=== PATIENT | female | born 1950 | race Caucasian/White ===

== ENCOUNTER → 2020-10-24 | Outpatient (CLI) | payer OTHER | LOC: SJCVC 10:11 | PROVIDERS: ATTEND Internal Medicine | DX: Z01.810 Encounter for preprocedural cardiovascular examination (principal); R94.31 Abnormal electrocardiogram [ECG] [EKG]; R06.09 Other forms of dyspnea; I10 Essential (primary) hypertension; E66.9 Obesity, unspecified; G47.30 Sleep apnea, unspecified; E03.9 Hypothyroidism, unspecified; Z88.1 Allergy status to other antibiotic agents; Z88.2 Allergy status to sulfonamides; Z88.8 Allergy status to other drugs, medicaments and biological substances; Z79.899 Other long term (current) drug therapy ==

== ENCOUNTER → 2020-12-07 | Outpatient (CLI) | payer OTHER ==
[~2020-12-07] MED LIST: ALPRAZOLAM 0.0.25 MG PO; AMPICILLIN TRI500 MG PO; BUPROPION HCL150 M1 PO; CELEBREX 200 M200 MG PO; CLONIDINE HCL0.1 MG PO; COZAAR100 MG PO; FLEXERIL PO; LEVO-T50 MCG PO; MIRAPEX1.5 MG PO; NEUPRO1 EAC1 TRANSDERM; NIFEDIPINE ER30 MG PO; NORCO7.5 PO; NYSTOP TOP; PROTONIX40 M4 PO; ROSUVASTATIN CA10 MG PO; ZOLOFT100 MG PO
== END ==
LOC: SJCVCIMAG 07:19
PROVIDERS: ATTEND Internal Medicine
DX: Z01.810 Encounter for preprocedural cardiovascular examination (principal); I49.1 Atrial premature depolarization; I10 Essential (primary) hypertension; E78.5 Hyperlipidemia, unspecified; R94.31 Abnormal electrocardiogram [ECG] [EKG]; R06.00 Dyspnea, unspecified

== ENCOUNTER → 2020-12-20 | Outpatient (CLI) | payer OTHER | LOC: LAB 10:53 | PROVIDERS: ATTEND Internal Medicine Gastroenterology | DX: Z01.812 Encounter for preprocedural laboratory examination (principal); Z20.822 Contact with and (suspected) exposure to COVID-19 ==

== ENCOUNTER → 2020-12-25 | Outpatient (CLI) | payer OTHER ==
[~2020-12-25] VITALS: Ht 154.9 cm; Wt 113.4 kg
--- NOTE | 2020-12-27 18:06 | PATH ---
[facility] [place] [address] PATHOLOGY RPT PROCEDURE Name: NIMCO CARLSON Room #: REG ANTHONY Elizabeth.Jazzy.#: [id number] Admission: 12/25/20 Date of : 54 Discharge: Report #: [id number] Path Case #: [id number] LCA Accession Number: [id number] . 01 Material submitted: . PART A: gastrointestinal site - RANDOM GASTRIC BIOPSY PART B: esophagus - RANDOM ESOPHAGUS BIOPSY . 01 Clinical history: . DTS/EGD/REFLUX, BARIATRIC SURGERY FOR A- RULE OUT H. PYLORI FOR B- RULE OUT EOSINOPHILIC ESOPHAGITIS . 02 Diagnosis: A. Gastric mucosa, random gastric, endoscopic biopsy: - Moderate reactive gastropathy. - Negative for intestinal metaplasia or atrophy. - Negative for Helicobacter pylori (properly-controlled immunohistochemical stain performed). . B. Squamous mucosa, random esophageal, endoscopic biopsy: - Mild active esophagitis. - No increase in eosinophils within the epithelium. - Negative for intestinal metaplasia or dysplasia. . (IUV:mml; 12/27/2020) QLM 12/27/2020 1336 Local . 02 Electronically signed: . Cheri Valles MD, Pathologist NPI- [id number] . 01 Gross description: . A. The specimen is received in formalin, labeled "Nimco Carlson", "random gastric biopsy rule out H. pylori". Received are multiple segments of pale man soft tissue ranging in size from 0.2 cm to 0.4 cm. The specimen is entirely submitted in cassette A1. . B. The specimen is received in formalin, labeled "Nimco Carlson", "random esophagus biopsy rule out eosinophilic esophagitis". Received are multiple segments of pale white soft tissue ranging in size from 0.1 cm to 0.3 cm. The specimen is entirely submitted in cassette B1.([facility]; 12/26/2020) [facility] 12/26/2020 08 Local . 02 Pathologist provided ICD-10: K31.9, K20.[address] [address] PATHOLOGY RPT PROCEDURE Name: NIMCO CARLSON Room #: REG ANTHONY Medrano#: [id number] Admission: 12/25/20 Date of : 54 Discharge: Report #: [id number] Path Case #: [id number] . 02 [facility] . [id number], [id number], [id number] Specimen Comment: A courtesy copy of this report has been sent to [phone] Specimen Comment: [id number] Specimen Comment: Report sent to / DR LADD Performed at: [address], [place] [id number] MD Matti Lopez MD Phone: [phone] Performed at: [address] [id number] MD Cheri Valles MD Phone: [phone]
== END | disposition home or self-care (01) ==
LOC: GI 11-27 14:09
PROVIDERS: ATTEND Internal Medicine Gastroenterology
DX: R13.10 Dysphagia, unspecified (principal); R12 Heartburn; K31.9 Disease of stomach and duodenum, unspecified; K21.00 Gastro-esophageal reflux disease with esophagitis, without bleeding; K29.70 Gastritis, unspecified, without bleeding; I10 Essential (primary) hypertension; E78.00 Pure hypercholesterolemia, unspecified; F32.9 Major depressive disorder, single episode, unspecified; F41.9 Anxiety disorder, unspecified; E66.01 Morbid (severe) obesity due to excess calories; Z98.890 Other specified postprocedural states; Z01.818 Encounter for other preprocedural examination; Z79.899 Other long term (current) drug therapy; Z90.49 Acquired absence of other specified parts of digestive tract; Z90.711 Acquired absence of uterus with remaining cervical stump; Z88.8 Allergy status to other drugs, medicaments and biological substances; Z68.42 Body mass index [BMI] 45.0-49.9, adult
CPT/HCPCS: 62110; 62900

== ENCOUNTER → 2021-02-07 | Outpatient (CLI) | payer OTHER | LOC: SJCVC 13:07 | PROVIDERS: ATTEND Internal Medicine | DX: Z01.818 Encounter for other preprocedural examination (principal); I10 Essential (primary) hypertension; G47.30 Sleep apnea, unspecified; E66.9 Obesity, unspecified; R06.09 Other forms of dyspnea; R94.31 Abnormal electrocardiogram [ECG] [EKG]; M19.90 Unspecified osteoarthritis, unspecified site; E03.9 Hypothyroidism, unspecified; Z98.890 Other specified postprocedural states; Z68.43 Body mass index [BMI] 50.0-59.9, adult; Z88.2 Allergy status to sulfonamides; Z88.8 Allergy status to other drugs, medicaments and biological substances; Z79.899 Other long term (current) drug therapy; Z82.49 Family history of ischemic heart disease and other diseases of the circulatory system ==

== ENCOUNTER 2021-03-08 06:07 | Inpatient (IN) | payer OTHER ==
[~2021-03-08] VITALS: Ht 154.9 cm; Wt 108.9 kg
[2021-03-08] VITALS (9 sets, daily range): BP systolic 121–187; BP diastolic 45–72
--- NOTE | ~2021-03-08 | O ---
[facility] [place] [address] [place] [address] OPERATIVE REPORT Name: EDINSON CARLSON Room #: 451-P ADM IN M.R.#: [id number] Admission: 03/08/21 Attend Phys: Santy Brannon MD Discharge: Date of : 54 Report #: [id number] THIS REPORT FOR: cc: Nahomy Ruiz MD, Emily G. MD Joseph, Sigi P. MD ~ DOC #: [id number] cc: Nahomy Brannon MD DATE OF SERVICE: 03/08/2021 PREOPERATIVE DIAGNOSES: 1. Morbid obesity. 2. Hypertension. 3. Gastroesophageal reflux disease. 4. Hyperlipidemia. 5. Sleep apnea. POSTOPERATIVE DIAGNOSES: 1. Morbid obesity. 2. Hypertension. 3. Gastroesophageal reflux disease. 4. Hyperlipidemia. 5. Sleep apnea. OPERATIVE PROCEDURES DONE: 1. Laparoscopic Dionicio-en-Y gastric bypass. 2. Upper GI endoscopy. OPERATING SURGEON: Santy Brannon MD INDICATIONS FOR THE PROCEDURE: The patient is a 71-year-old female who presented with features of morbid obesity. She was noted to have a weight of 112 kilograms with a BMI of 47 with the above listed comorbidities. The patient has limited mobility and is often wheelchair bound. The patient was advised laparoscopic Dionicio-en-Y gastric bypass. The patient showed understanding and agreed to proceed. DESCRIPTION OF PROCEDURE: After explaining to the patient in detail and informed consent was obtained, the patient was identified in the preoperative holding area. The patient was transferred to the operating room and was placed in supine position. Sequential compressive devices were placed for DVT prophylaxis. No preoperative antibiotics were given. After induction of anesthesia, the abdomen was prepped and draped in a sterile fashion. Through a left upper quadrant, a 1 cm incision and using Optiview technique, peritoneal [facility] [address] [place] [address] OPERATIVE REPORT Name: EDINSON CARLSON Room #: 451-P [facility] [id number] Admission: 03/08/21 Attend Phys: Santy Brannon MD Discharge: Date of : 54 Report #: [id number] cavity was entered and pneumoperitoneum was created. Thereafter, under direct vision, another 5 mm trocar was placed in the left mid abdomen and another 12 mm trocar was placed in the right mid abdomen and another 5 mm trocar was placed in the right upper quadrant region and through a 1 cm incision in the epigastrium, a Simone retractor was introduced and the left lobe of the liver was retracted. Upon initial inspection, the patient did not have any features to suggest a hiatal hernia. I divided the gastrohepatic omentum using EnSeal. I then divided the fatty tissues with a small blood vessels along the lesser curve of the stomach at the junction of the proximal and middle third using an Endo-KAMINI white load stapler with Arlette-Strips. I then fired a single green load 60 mm stapler transversely at this point. The posterior attachments of the stomach and the pancreas were released. The gastrophrenic ligament was divided and the angle of His was mobilized. I then continued to create the gastric pouch by dividing the stomach in a vertical fashion up to the angle of His using Endo-KAMINI green load stapler with Arlette-Strips. Once this is complete, I then divided the greater omentum using the EnSeal in the middle. The transverse mesocolon was retracted. I then inspected the small bowel from the ligament of Treitz and measured downstream for about 50 cm. I then brought this loop of bowel onto the gastric pouch. An enterotomy was made at this point on the small bowel and a posterior gastrotomy was made in the gastric pouch and a posterior gastrojejunostomy was made using an Endo-KAMINI blue load stapler. With the initial firing as lumen appeared slightly smaller, I fired a second stapler again to just have adequate lumen approximately about 2.5 cm to 3 cm lumen. The common gastroenterotomy was then closed using 2-0 V-Loc continuous sutures in two layers. I then divided the biliary limb just proximal to the anastomosis using Endo-KAMINI blue load stapler with Arlette-Strips. I then measured the Dionicio limb for about 125 cm. An enterotomy was made at this point, another enterotomy was made in the biliary limb and a [id number] jejunojejunostomy was made. The common enterotomy was then again closed using blue load stapler with Arlette-Strips. The mesenteric defect was closed with 2-0 silk sutures. I then proceeded with the upper GI endoscopy. The Dionicio limb was occluded just distal to the anastomosis. The scope was introduced into the esophagus, was gradually advanced into the gastric pouch. The pouch appeared to be of adequate size. The gastrojejunal anastomosis appeared to be of adequate size. I was able to enter the Dionicio limb without difficulty and air insufflation test was performed and by irrigation of fluid along the staple line, there was no leak that was noted. The scope was removed. Absolute hemostasis was ensured. Thorough saline irrigation was given. Approximately 10 mL of lidocaine, Marcaine mix was instilled into the left hemidiaphragm. The Simone retractor was removed. The 12 mm port site incision was closed with 0 Vicryl for the fascia. Skin was closed with 4-0 Monocryl for all the incisions. Dermabond was applied. The patient was stable at the end of the procedure. The patient was [facility] [place] [address] OPERATIVE REPORT Name: EDINSON CARLSON Room #: 451-P [facility] IN ..#: [id number] Admission: 03/08/21 Attend Phys: Santy Brannon MD Discharge: Date of : 54 Report #: [id number] awoken from anesthesia and was transferred to the recovery room in stable condition. Estimated blood loss was approximately 20 mL. CONDITION OF THE PATIENT: Stable. FLUIDS GIVEN: Per anesthesia notes. SPECIMEN SENT: None. COMPLICATIONS: None. ANESTHESIA: General anesthesia. Santy Brannon MD SPJ/KDA By: [id number] Santy Brannon MD /nt
[~2021-03-08 06:07] MED LIST changes: +IRON325 PO
--- NOTE | 2021-03-08 19:32 | NUR ---
Pt arrived to floor per cart from recovery room at 1145 in stable condition. Admission hx, assessment and careplan completed.Pt c/o abdominal pain rated 9/10. Morphine ivp given with relief.Dr Brannon rounded on pt later this evening,additional order received.Pt family at bs most of thetime this evening.Pt ambulated in hallways with tech.Fair endurance noted.Report off to Lanny rn.
[2021-03-09] VITALS (8 sets, daily range): BP systolic 152–184; BP diastolic 55–93
--- NOTE | 2021-03-09 02:21 | NUR ---
patient aox4 makes needs known. pain and nausea controlled this shift.patient had high blood pressure called dr. peguero order of hydralazine 10 mg q 2 hours, for blood pressure>170. patient has 4 lap sites on the abd c/d/i. patient ambulates with steady gaits in the unit x1. patient continues to be npo. o2 sat >95%. fall precaution in place. patient in bed asleep at this time breathing regular and unlaboured.
[2021-03-09 05:30] LABS: ABSOLUTE NEUTROPHILS 9.9 thou/uL (1.4-8.2); BASOPHILS 0.3 % (0.0-2.0); EOSINOPHILS 0.8 % (0.0-3.0); HEMATOCRIT 36.6 % (37.0-47.0); LYMPHOCYTES 8.6 % (24.0-44.0); MCH 28.1 pg (26.0-34.0); MCHC 32.8 g/dL (28.0-37.0); MCV 85.7 fL (80.0-100.0); MONOCYTES 4.6 % (1.0-8.0); PLATELET COUNT 227 thou/uL (150-400); POLYS 85.7 % (36.0-66.0); RBC 4.28 mil/uL (4.20-5.00); RDW 16.2 % (10.5-14.5); WBC 11.6 thou/uL (4.0-11.0)
[2021-03-09 05:55] LABS: ALBUMIN 3.8 g/dL (3.4-5.0); CALCIUM 9.2 mg/dL (8.5-10.1); CREATININE 0.8 mg/dL (0.6-1.0); POTASSIUM 4.5 mmol/L (3.5-5.1); TOTAL BILIRUBIN 0.3 mg/dL (0.2-1.0); TOTAL PROTEIN 7.3 g/dL (6.4-8.2)
--- NOTE | 2021-03-09 10:37 | NUR ---
PT and ASPHALT PAVING MACHINE OPERATOR reported that the patient had tremor, the staff talked to Dr. Brannon, was asked to consult a physician, any of the hospitalists. A message has been sent to Dr. Lange. awaiting response. According the patient, she had the similar symptom this morning around 9:30am, a adrián saw it but [facility].
--- NOTE | 2021-03-09 10:42 | NUR ---
Talked to the quarry supervisor open pit Rhonda, Rhonda asked the staff to wait some more time for Dr. Lange to answer, or else, Rhonda voiced that i can call her for help again.
--- NOTE | 2021-03-09 11:18 | NUR ---
Patient checked at 11:15am, tremor stopped, patient had eyes closed, chest up and down. the staff talked to the patient, patient voiced that she was having headache,06/10, BP:171/77. PULSE 66.
--- NOTE | 2021-03-09 11:28 | NUR ---
PT. HAVING TREMORS - RESIDENTIAL APPLIANCE REPAIR TECHNICIAN INITIATED - SEE FLOWSHEET
--- NOTE | 2021-03-09 11:31 | NUR ---
Patient has been tremor free during the past at least 20 minutes.
--- NOTE | 2021-03-09 12:17 | NUR ---
PT ADMITTED RELATED TO GASTRIC BYPASS. CM REVIEWED CHART AND SPOKE WITH CARE TEAM. CM MET WITH PT AND SO AT BEDSIDE THIS DAY. PT APPEARED TO BE A&O X4. CM ROLE INTRODUCED. PT INDICATED SHE RESIDES IN A HOUSE WITH HER SO AND HER GSON. SHE INDICATED 2 STEPS TO ENTER AND A RAMP. NO STEPS PT USES INSIDE. PT INDICATED SHE HAS A FWW, 4WW (BROKEN SHE HAD USED OUTSIDE), AND A CANE. THEY INDICATED THAT PT HAD BEEN INDEPENDENT WITH ADLS INSPECTOR CASING. PT'S PCP IS DR. MYAH LADD. SO AND PT INDICATED THEY PLAN FOR PT TO RETURN HOME ONCE MEDICALLY STABLE. CM FOLLOWING SHOULD ANY DC NEEDS ARISE.
--- NOTE | 2021-03-09 13:00 | EKG ---
[address] [place] [address] ELECTROCARDIOGRAM REPORT Name: EDINSON CARLSON Room #: 451-P ADM IN M.R.#: [id number] Admission: 03/08/21 Attend Phys: Santy Brannon MD Discharge: Date of : 54 Report #: [id number] [facility] Test Date: 2021-03-09 Test Time: 11:03:09 Pat Name: EDINSON CARLSON Department: Room: [facility] Gender: F Physicist Astrophysics: NATHANAEL : 1950 Requested By: Santy Brannon Order Number: [id number] MD: Freedom Bauman Measurements Intervals [place] Rate: 83 P: 63 PA: 143 QRS: 1 QRSD: 83 T: 39 QT: 382 QTc: 449 Interpretive Statements Sinus rhythm Abnormal R-wave progression, late transition Left ventricular hypertrophy No previous ECG available for comparison Electronically Signed On 03-09-2021 13:00:27 CDT by Freedom Bauman [email or web address] <ELECTRONICALLY SIGNED> By: Freedom Bauman MD, [facility] 03/09/21 1300 1103 1103 Freedom Bauman MD, FACC /EPI
--- NOTE | 2021-03-09 13:46 | NUR ---
Nutrition: pt admitted POD 1, S/P laura-N-Y gastric bypass. RD consulted related to gastric sleeve diet order. Pt tolerating sips at this time. Very sleepy at time of visit but reports prior education on post op diet, voiced no questions. BMI 45, extreme class 3 obesity. On IVFs. A1C 6.0, BG controlled. Further diet advancement/vitamin orders per surgery. Consider low risk.
--- NOTE | 2021-03-09 18:13 | NUR ---
Patient stated while the being present that she did not want to be resuscitated if anything happened to her.
--- NOTE | 2021-03-09 18:19 | NUR ---
About the code status, patient changed idea, see the chart.
--- NOTE | 2021-03-09 18:48 | NUR ---
Gautam out around 9:20am, no urination since then,bladder scan: 450ml. call LABORATORY DEVELOPMENT TECHNICIAN, but LABORATORY DEVELOPMENT TECHNICIAN voiced that she would not begin the shift until 7pm, the staff send a message to Dr dockery. see the new orders.
[2021-03-09 20:09] LABS: URINE BILIRUBIN NEGATIVE (Negative); URINE BLOOD 1+ (Negative); URINE CLARITY CLEAR; URINE COLOR YELLOW; URINE GLUCOSE-RANDOM* NEGATIVE (Negative); URINE KETONES NEGATIVE (Negative); URINE LEUKOCYTES-REFLEX TRACE (Negative); URINE NITRITE-REFLEX NEGATIVE (Negative); URINE PROTEIN (DIPSTICK) NEGATIVE (Negative); URINE UROBILINOGEN 0.2 E.U./dl (0.2-1.0)
[2021-03-09 20:19] LABS: BACTERIA-REFLEX None Seen /HPF (None Seen); CASTS None Seen /LPF (None Seen); CRYSTALS None Seen /LPF (None Seen); SQUAMOUS 0-3 Few /LPF (0-3); URINE RBC 1-2 Rare /HPF (NONE SEEN); URINE WBC-REFLEX 0-5 Rare /HPF (0-5)
[2021-03-10 05:01] VITALS: BP 122/53
--- NOTE | 2021-03-10 05:13 | NUR ---
Assumed pt care 0. A/OX4,VSS.C/o nausea, pain to abd;medicated per EMAR with relief reported. Pt has 4 lap sites intact with dermabond. Bladder scanned at 0400 99cc noted,denies need to void,will continue to monitor pt. No tremors noted this shift. Reports last BM a week ago and doesn't feel constipated tho. NSR on telemetry. Will continue to monitor pt.
[2021-03-10 05:40] LABS: HEMATOCRIT 35.8 % (37.0-47.0); HEMOGLOBIN 11.8 gm/dL (12.0-15.0); MCH 28.2 pg (26.0-34.0); MCHC 32.8 g/dL (28.0-37.0); MCV 86.1 fL (80.0-100.0); RBC 4.16 mil/uL (4.20-5.00); RDW 16.4 % (10.5-14.5)
[2021-03-10 05:59] LABS: ALBUMIN 3.1 g/dL (3.4-5.0); CALCIUM 8.7 mg/dL (8.5-10.1); CREATININE 0.8 mg/dL (0.6-1.0); POTASSIUM 4.3 mmol/L (3.5-5.1); TOTAL BILIRUBIN 0.5 mg/dL (0.2-1.0); TOTAL PROTEIN 6.5 g/dL (6.4-8.2)
[2021-03-10 07:25] VITALS: BP 136/52
--- NOTE | 2021-03-10 08:49 | HC ---
[facility] [place] [address] [place] [address] CONSULTATION Name: EDINSON CARLSON Room #: 451-P ADM IN M.R.#: [id number] Admission: 03/08/21 Attend Phys: Santy Brannon MD Discharge: Date of : 54 Report #: [id number] THIS REPORT FOR: cc: Nahomy Ruiz MD,Mayuri Griffith MD, DO ~ NEUROLOGY CONSULTATION HISTORY OF PRESENT ILLNESS: The patient is a 71-year-old female who tells me that for the past several months, she has had episodes of generalized trembling of the extremities. Today, she had an episode where she felt her head began to jerk, then the upper extremities followed by the lower extremities. Today, she had 2 episodes, which she states is unusual for her. She has never had more than one episode at a time. The episodes lasted 25 minutes to 45 minutes. This is also the first time that episode has lasted so long. The patient was admitted to the hospital for a laparoscopic Dionicio-en-Y gastric bypass. There is no mention of the tremor in the doctor's notes; however, the nurses' notes were reviewed and the patient reported that she had tremor. Dr. Brannon asked that the hospitalist be consulted and Dr. Lange evaluated the patient. By 10:52, a rapid response was called to further evaluate the patient. The tremor stopped. Her eyes were closed. Her chest was going up and down. The staff talked to the patient and she stated that she was having a headache. Her blood pressure was 171/77. A CT scan of the head was done and neurology was consulted. The CT scan of the head was unremarkable. The patient tells me that during these episodes of shaking, she is aware that she is shaking. There is nothing that brings them on or makes them better. She has had these for several months. Today was the first day that she had two in one day. PAST MEDICAL HISTORY: Morbid obesity, hypertension, gastroesophageal reflux, hyperlipidemia and sleep apnea. PAST SURGICAL HISTORY: Laparoscopic Dionicio-en-Y gastric bypass. MEDICATIONS: Lovenox 40 mg subq daily, levothyroxine 50 mcg daily, losartan 100 mg at bedtime, nifedipine 30 mg at bedtime, pantoprazole 40 mg at bedtime, pramipexole 1.5 mg at bedtime and sertraline 200 mg at bedtime. ALLERGIES: ERYTHROMYCIN, MELOXICAM, PREGABALIN, ADHESIVE, AMOXICILLIN and CLAVULANIC ACID. PHYSICAL EXAMINATION: VITAL SIGNS: Temperature 36.7, pulse rate 87, respiratory rate 18, blood [address] [address] CONSULTATION Name: EDINSON CARLSON Room #: [facility] IN M.R.#: [id number] Admission: 03/08/21 Attend Phys: Santy Brannon MD Discharge: Date of : 54 Report #: [id number] pressure 157/55, bedside pulse oximetry 96% on 2 liters. LABORATORY WORK: Hematology: White blood cell count 11.6, hemoglobin 12, hematocrit 36.6, MCV 85.7, platelet count 227,000. Chemistry: Sodium 140, potassium 4.5, chloride 103, carbon dioxide 25, BUN 10, creatinine 0.8, GFR 71, glucose 127, calcium 9.2, bilirubin 0.3, AST 388, ALT 349, alkaline phosphatase 95, total protein 7.3 and albumin 3.8. IMAGING: CT scan of the head unremarkable. NEUROLOGIC EXAMINATION: Cranial nerves demonstrate extraocular movements intact. Facial expressions appear symmetrical. Tongue and palate midline. Shoulder shrug symmetrical bilaterally. She was able to lift both arms from the bed. She had more difficulty with the left proximal upper extremity. Fine finger movements were symmetrical bilaterally. She was able to lift each leg a few inches off the bed. Reflexes were absent. Plantar responses were flexor. Coordination revealed no evidence of dysmetria with tomqdm-pd-gyny. IMPRESSION AND PLAN: I do not think these episodes of tremor are seizure. She cannot be having a generalized type seizure with and be aware that she is having the tremors at the same time. Without seeing the tremors, it is difficult to know what they are. If the tremors continue, I would recommend a reduced dose of sertraline to perhaps 100 or 150 mg at bedtime. Her liver functions are elevated and I am going to order an ammonia level and a B12 level as well. I thank you for your kind referral of the patient and we will re-evaluate her tomorrow. <ELECTRONICALLY SIGNED> By: Mayuri Borden DO 03/10/21 0849 1638 0058 Mayuri Borden DO /nt
[2021-03-10 09:25] LABS: % SATURATION 10 % (20-39); IRON 25 ug/dL (50-170); TIBC 240 ug/dL (250-450)
--- NOTE | 2021-03-10 11:16 | NUR ---
ASSUMED PT CARE THIS AM. PT A&OX4, ABLE TO MAKE NEEDS KNOWN. PATIENT REPORTS NAUSEA THAT IS PARTIALLY RESOLVED WITH MEDS GIVEN PER EMAR. PATIENT HAS LAP SITES TO ABDOMEN, DRY AND INTACT. NO TREMORS NOTED OF YET. IV REMAINS PATENT, FLUIDS INFUSING. PATIENT ON ROOM AIR. DIET CHANGED TO FULL LIQUIDS, PATIENT ABLE TO TOLERATE A SMALL AMOUNT OF FOOD WITH BREAKFAST. DR. HERRERA INFORMED REGARDING PATIENT REPORTING VOMITING THREE TIMES OVERNIGHT WELL CURRENT NAUSEA, AND PHYSICIAN ORDERED UPPER GI XRAY. XRAY CALLED AND EXPLAINED THAT RADIOLOGIST HAS TO BE PRESENT IN ORDER TO GET THIS TEST COMPLETED AND THAT IT WOULD NOT BE POSSIBLE UNTIL FRIDAY. DR. HERRERA'S OFFICE CALLED AND PHYSICIAN HALEIGH WAS MADE AWARE OF THIS. PATIENT REPORTS NO NUMBNESS OR TINGLING. PATIENT IS UP WITH ASSIST. FALL PRECAUTIONS ARE IN PLACE, CALL LIGHT WITHIN REACH.
[2021-03-10 16:20] VITALS: BP 112/56
[2021-03-10 20:48] VITALS: BP 124/58
[2021-03-11 01:05] LABS: HAV IgM AB (ANTI-HAV IgM) Negative (Negative); HEPATITIS B SURFACE AG Negative (Negative); HEPATITIS C VIRUS AB <0.1 (0.0-0.9)
--- NOTE | 2021-03-11 05:13 | NUR ---
patient ambulated x2 this shift. pain controlled this shift. 4 lap sites are c/d/i. fall precaution in place. patient in bed asleep at this time breathing regular and unlaboured.
[2021-03-11 05:45] LABS: HEMATOCRIT 31.8 % (37.0-47.0); HEMOGLOBIN 10.4 gm/dL (12.0-15.0); MCHC 32.8 g/dL (28.0-37.0); MCV 85.6 fL (80.0-100.0); RBC 3.72 mil/uL (4.20-5.00); RDW 16.2 % (10.5-14.5); WBC 7.8 thou/uL (4.0-11.0)
[2021-03-11 06:07] LABS: ALBUMIN 2.9 g/dL (3.4-5.0); CALCIUM 8.6 mg/dL (8.5-10.1); CREATININE 0.9 mg/dL (0.6-1.0); MAGNESIUM 1.8 mg/dL (1.8-2.4); POTASSIUM 4.1 mmol/L (3.5-5.1); TOTAL BILIRUBIN 0.4 mg/dL (0.2-1.0); TOTAL PROTEIN 6.2 g/dL (6.4-8.2)
[2021-03-11 07:21] VITALS: BP 120/56
--- NOTE | 2021-03-11 10:43 | NUR ---
ASSUMED PT CARE THIS AM. PT A&OX4, ABLE TO MAKE NEEDS KNOWN. SULAIMANT REPORTS ABDOMINAL PAIN THAT RESPONDS TO MEDS GIVEN PER EMAR. PATIENT GIVE IV NAUSEA MEDICATION PRIOR TO BREAKFAST AND TOLERATED BREAKFAST WELL. PATIENT HAS HAD NO VOMITING THIS SHIFT SO FAR. PATIENT REMAINS CONTINENT, AMBULATORY TO THE BEDSIDE COMMODE WITH ASSIST. LAP SITE ON LEFT LEFT MIDDLE PART OF ABDOMEN LEAKING SEROUS FLUID, 4X4 GAUZE APPLIED TO SITE. NO TREMORS NOTED OF YET. PATIENT REMAINS ON ROOM AIR. IV PATENT, FLUIDS INFUSING. FALL PRECAUTIONS ARE IN PLACE, CALL LIGHT WITHIN REACH.
[2021-03-11 16:07] VITALS: BP 120/50
[2021-03-11 20:03] VITALS: BP 113/57
--- NOTE | 2021-03-12 02:25 | NUR ---
patient had nausea and vomit this shift x1. patient refused to ambulate this shift. patient has 4 lap site. 1 lap site on the right site is leaking fluid, no s/s of infection.iv inflitated on right wrist and changed to left wrist. fall precaution in place. patient in bed asleep at this time breathing regular and unlaboured.
[2021-03-12 07:12] VITALS: BP 102/43; BP 107/35
[2021-03-12 08:31] LABS: HEMATOCRIT 30.5 % (37.0-47.0); HEMOGLOBIN 9.9 gm/dL (12.0-15.0); MCH 28.1 pg (26.0-34.0); MCHC 32.6 g/dL (28.0-37.0); RBC 3.54 mil/uL (4.20-5.00); RDW 16.2 % (10.5-14.5); WBC 5.4 thou/uL (4.0-11.0)
[2021-03-12 08:55] LABS: ALBUMIN 2.7 g/dL (3.4-5.0); CALCIUM 8.6 mg/dL (8.5-10.1); CREATININE 0.9 mg/dL (0.6-1.0); MAGNESIUM 1.9 mg/dL (1.8-2.4); POTASSIUM 4.3 mmol/L (3.5-5.1); TOTAL BILIRUBIN 0.5 mg/dL (0.2-1.0); TOTAL PROTEIN 6.1 g/dL (6.4-8.2)
--- NOTE | 2021-03-12 10:51 | NUR ---
Assumed care of pt at 0700. Pt a&ox4. Pain and nausea controlled with medications. IVF infusing. One of the incisions tends to leak with activity. Per night nurse, provider aware. Pt currently transported for [facility] x-ray. Pt is nauseaus when drinking clear liquids. Unable to keep fluids down. Call light within reach. Fall precautions in place. Will continue to monitor.
[2021-03-12 15:25] VITALS: BP 132/43
--- NOTE | 2021-03-12 15:25 | NUR ---
PT WITH POST OP ILEUS. PT HAVING UPPER GI SERIES THIS DAY. CM FOLLOWING REGARDING DC PLANNING.
[2021-03-12 19:33] VITALS: BP 147/50
--- NOTE | 2021-03-13 04:29 | NUR ---
Pt. rested quietly at intervals during the night when checked on during frequent rounds. She c/o abdominal pain and pain med given (see emar) with relief noted. Up to the bathroom with walker,gait belt and assistance of one. Bed alarm is on.
[2021-03-13 05:38] LABS: HEMATOCRIT 31.9 % (37.0-47.0); HEMOGLOBIN 10.2 gm/dL (12.0-15.0); MCH 27.8 pg (26.0-34.0); MCHC 32.1 g/dL (28.0-37.0); MCV 86.7 fL (80.0-100.0); RBC 3.68 mil/uL (4.20-5.00); RDW 16.5 % (10.5-14.5); WBC 4.5 thou/uL (4.0-11.0)
[2021-03-13 06:08] LABS: ALBUMIN 2.8 g/dL (3.4-5.0); CALCIUM 8.9 mg/dL (8.5-10.1); CREATININE 0.7 mg/dL (0.6-1.0); POTASSIUM 4.2 mmol/L (3.5-5.1); TOTAL BILIRUBIN 0.4 mg/dL (0.2-1.0); TOTAL PROTEIN 6.6 g/dL (6.4-8.2)
[2021-03-13 08:37] VITALS: BP 131/47
--- NOTE | 2021-03-13 10:52 | NUR ---
KUB RESULTS CALLED TO PHYSICIAN, REPORTED TO HOLD OFF ON DISCHARGE AT THIS TIME.
--- NOTE | 2021-03-13 11:36 | NUR ---
ASSUMED PT CARE THIS AM. PT A&OX4, ABLE TO MAKE NEEDS KNOWN. IV PATENT, FLUIDS INFUSING. PATIENT REPORTS PAIN IN THE ABDOMEN THAT RESPONDS WELL TO PAIN MEDS GIVEN PER EMAR. PATIENT REPORTED NAUSEA AFTER MORNING MEDICATIONS WERE GIVEN, RESPONED WELL TO NAUSEA MEDS GIVEN. PATIENT REMAINS CONTINENT, AMBULATING AROUND ROOM WITH ASSIST. PATIENT REPORTS NO NUMBNESS OR TINGLING. DRESSING TO LEFT MIDDLE ABDOMEN CHANGED THIS SHIFT AND PHYSICIAN NOTED DRAINAGE. FALL PRECAUTIONS ARE IN PLACE, CALL LIGHT WITHIN REACH.
[2021-03-13 11:48] VITALS: BP 144/61
[2021-03-13 16:47] VITALS: BP 144/61
[2021-03-13 17:33] VITALS: BP 130/62
== END 2021-03-13 17:33 | disposition home or self-care (01) | DRG 620 ==
LOC: 4W 06:07 → TBA 06:07 → PRE 09:31 → 4W 11:07 → PRE 14:43 → 4W 03-13 17:33
PROVIDERS: Internal Medicine; Psychiatry & Neurology Neurology; ADMIT Surgery; ATTEND Surgery
PROC: 0D164ZA Bypass Stomach to Jejunum, Percutaneous Endoscopic Approach (ICD-10-PCS; principal; 2021-03-08)
DX: E66.01 Morbid (severe) obesity due to excess calories (principal); K56.7 Ileus, unspecified; K21.9 Gastro-esophageal reflux disease without esophagitis; E78.5 Hyperlipidemia, unspecified; I10 Essential (primary) hypertension; F32.9 Major depressive disorder, single episode, unspecified; E03.9 Hypothyroidism, unspecified; G25.81 Restless legs syndrome; R74.01 Elevation of levels of liver transaminase levels; F41.9 Anxiety disorder, unspecified; E55.9 Vitamin D deficiency, unspecified; D50.9 Iron deficiency anemia, unspecified; Z68.42 Body mass index [BMI] 45.0-49.9, adult; Z88.1 Allergy status to other antibiotic agents; Z88.8 Allergy status to other drugs, medicaments and biological substances; Z90.49 Acquired absence of other specified parts of digestive tract; Z98.42 Cataract extraction status, left eye; Z98.41 Cataract extraction status, right eye; Z90.711 Acquired absence of uterus with remaining cervical stump
CPT/HCPCS: 10045; 10047; 50010; 50101; 50222; 50386; 50455; 50555; 50558; 50739; 50740; 51489; 52265; 52266; 53307; 54022; 54118; 56462; 56525; 56526; 57092; 58574; 58587; 62110; 62900; 70005

== ENCOUNTER → 2021-04-04 | Outpatient (CLI) | payer OTHER | LOC: SJCVC 13:04 | PROVIDERS: ATTEND Internal Medicine | DX: I10 Essential (primary) hypertension (principal); R06.09 Other forms of dyspnea; G47.30 Sleep apnea, unspecified; E66.9 Obesity, unspecified; M19.90 Unspecified osteoarthritis, unspecified site; E03.9 Hypothyroidism, unspecified; Z98.890 Other specified postprocedural states; Z68.43 Body mass index [BMI] 50.0-59.9, adult; Z88.2 Allergy status to sulfonamides; Z88.8 Allergy status to other drugs, medicaments and biological substances; Z79.899 Other long term (current) drug therapy; Z82.49 Family history of ischemic heart disease and other diseases of the circulatory system ==

== ENCOUNTER → 2021-04-25 | Outpatient (CLI) | payer OTHER | LOC: SJCVC 13:17 | PROVIDERS: ATTEND Internal Medicine | DX: I10 Essential (primary) hypertension (principal); R06.00 Dyspnea, unspecified; G47.30 Sleep apnea, unspecified; E03.9 Hypothyroidism, unspecified; E66.01 Morbid (severe) obesity due to excess calories; Z88.1 Allergy status to other antibiotic agents; Z88.2 Allergy status to sulfonamides; Z88.8 Allergy status to other drugs, medicaments and biological substances; Z79.891 Long term (current) use of opiate analgesic; Z79.899 Other long term (current) drug therapy ==

== ENCOUNTER → 2021-05-23 | Outpatient (CLI) | payer OTHER | LOC: SJCVC 13:11 | PROVIDERS: ATTEND Internal Medicine | DX: I10 Essential (primary) hypertension (principal); R06.00 Dyspnea, unspecified; R94.31 Abnormal electrocardiogram [ECG] [EKG]; G47.30 Sleep apnea, unspecified; E03.9 Hypothyroidism, unspecified; Z88.1 Allergy status to other antibiotic agents; Z88.2 Allergy status to sulfonamides; Z88.8 Allergy status to other drugs, medicaments and biological substances; Z79.899 Other long term (current) drug therapy; Z79.891 Long term (current) use of opiate analgesic ==